=== PATIENT | male | born 1970 | race Caucasian/White ===

== ENCOUNTER 2017-07-13 06:07 | Day surgery (SDC) | payer MEDICAID ==
[2016-05-19 11:40] VITALS: BMI 31.1
[2017-07-13] MEDS ORDERED: EPINEPHrine 1:1000 Nasal Sol(30mL) ONE (07:43)
[2017-07-13] MEDS ORDERED: Lidocaine 2% w Epi 1:100,000 Inj IJ ONE (07:43)
[2017-07-13] MEDS ORDERED: ceFAZolin IV 2 gm in Dextrose 1 GM/50 ML BAG IVPB ONE (07:43)
[2017-07-13] MEDS ORDERED: Oxymetazoline 0.05% Nasal Spray (30 ml) NS ONE (07:43)
[2017-07-13] MEDS ORDERED: Lactated Ringer's 1,000 ML IV ONE (07:54)
[2017-07-13] MEDS ORDERED: Midazolam 2 MG/2 ML VIAL ONE (07:55)
[2017-07-13] MEDS ORDERED: Rocuronium 10 mg/ml (5 ml) ONE (07:56)
[2017-07-13] MEDS ORDERED: Propofol 10 mg/ml Inj (20 ML) ONE (07:56)
[2017-07-13] MEDS ORDERED: Albuterol HFA 90 mcg/actuation (8 g) ONE (08:24)
[2017-07-13] MEDS ORDERED: Acetaminophen-Codeine 300/30 mg Tab PO PRN (09:48)
[2017-07-13] MEDS ORDERED: Dextrose 5%/0.45% NS 1,000 ML IV SCH (10:00)
[2017-07-13] MEDS: HYDROmorphone 0.5 mg/0.5 ml ISec IVP PRN ×2 (10:15→10:30)
--- NOTE | 2017-07-13 11:39 | OP ---
PROCEDURE DATE: 07/13/2017 PREOPERATIVE DIAGNOSES: Sinusitis, nasal polyposis. POSTOPERATIVE DIAGNOSES: Sinusitis, nasal polyposis. PROCEDURE: Endoscopic bilateral maxillary antrostomy, endoscopic bilateral ethmoidectomy, endoscopic bilateral sphenoidotomy, endoscopic bilateral frontal sinusotomy. SIGNIFICANT FINDINGS: Nasal polyposis noted in the ethmoid sinuses on both sides, maxillary antrum stenosed on both sides, frontal recess stenosed on both sides and sphenoid antrum stenosed on both sides. DESCRIPTION OF PROCEDURE: The patient was brought into the room, placed in the supine position, anesthesia was initiated through an ET tube. Afrin-soaked pledgets were inserted into the nasal cavity that remained there for at least 5 minutes and removed. Navigation was set up and used throughout the case in order to ensure that the skull base and orbit were not entered. The patient was draped in the usual manner. Zero-degree scope was inserted into the left nasal cavity. On the left, the middle turbinate was injected with lidocaine with epinephrine and medialized. The uncinate process was medialized using a Satin elevator and removed. Ethmoid bulla was entered inferomedially going posteriorly to the basal lamella, then anteriorly and superiorly until the ethmoid bulla was removed. The basal lamella was entered, posterior ethmoid cells were entered and opened, skull base was identified and followed anteriorly all the way to the area of the anterior ethmoid air cells. Frontal recess was noted to be stenosed and opened using forceps. Sphenoid antrum was noted to be stenosed and opened using forceps. Maxillary antrum was noted to be stenosed and opened using forceps. Bleeding was controlled using adrenaline-soaked pledgets and suction cautery. Attention was turned to the other side. The middle turbinate was injected with lidocaine with epinephrine and medialized. The polyps were noted to be emanating from the middle meatus and debrided. The uncinate process was medialized using Satin elevator and removed. The ethmoid bulla was entered inferomedially going posteriorly to the basal lamella, then anteriorly and superiorly until the ethmoid bulla was removed. The basal lamella was entered, posterior ethmoid cells were entered and opened, skull base was identified and followed anteriorly all the way to the area of the anterior ethmoid air cells. Frontal recess was noted to be stenosed and opened using forceps and the sphenoid antrum was noted to be stenosed and opened using forceps. Maxillary antrum was noted to stenosed and opened using forceps. Bleeding was controlled using adrenaline-soaked pledgets and suction cautery. Stents were placed on both sides. The patient was taken off of anesthesia and taken to the recovery room in stable manner. Edward Tomas MD
[2017-07-13 11:58] VITALS: BP 127/69; PULSE 68; RESP 18; TEMP 98; O2SAT 98
== END 2017-07-13 12:00 | disposition home or self-care (01) ==
LOC: C.SDS 06:07
PROVIDERS: ATTEND Otolaryngology
DX: J32.0 Chronic maxillary sinusitis (principal); J32.1 Chronic frontal sinusitis; J32.2 Chronic ethmoidal sinusitis; J32.3 Chronic sphenoidal sinusitis
CPT/HCPCS: 31256; 31276; 31287; 88304; J0690; J1100; J1170; J3010; J7042; J7120

== ENCOUNTER 2018-03-09 08:08 | Day surgery (SDC) | payer MEDICAID ==
[2016-05-19 11:40] VITALS: BMI 31.1
[2018-03-09] MEDS ORDERED: Esmolol 100 mg/10ml Inj IV ONE (09:39)
[2018-03-09] MEDS ORDERED: Propofol 10 mg/ml Inj (20 ML) ONE ×2 (09:39→09:53)
[2018-03-09] MEDS ORDERED: Midazolam 2 MG/2 ML VIAL ONE (09:39)
[2018-03-09] MEDS ORDERED: Lidocaine Hydrochloride 5 ML INJ ONE (09:40)
[2018-03-09 10:30] VITALS: TEMP 97.1
[2018-03-09 10:34] VITALS: O2SAT 97
[2018-03-09 11:13] VITALS: BP 150/82; PULSE 80; RESP 18
== END 2018-03-09 11:10 | disposition home or self-care (01) ==
LOC: C.ENDO 08:08
PROVIDERS: ATTEND Internal Medicine Gastroenterology
DX: K31.7 Polyp of stomach and duodenum (principal); K30 Functional dyspepsia; K44.9 Diaphragmatic hernia without obstruction or gangrene; K29.70 Gastritis, unspecified, without bleeding
CPT/HCPCS: 43239; 88305; J2250; J2704